=== PATIENT | male | born 1940 | race Caucasian/White ===

== ENCOUNTER 2016-08-08 11:37 | Emergency (ER) | payer MEDICARE, OTHER ==
[2016-08-08 11:55] VITALS: TEMP 96.9
[2016-08-08] MEDS ORDERED: SODIUM CHLORIDE 0.9% 1000 ML SOL IV SCH (12:30)
[2016-08-08 12:32] LABS: BASOPHILS % (AUTO) 1 % (0-3); EOSINOPHILS % (AUTO) 4 % (0-9); HEMATOCRIT 37 % (39-53); MEAN CORPUSCULAR VOLUME 91 fL (80-100); MONOCYTES % (AUTO) 7.6 % (0-12)
[2016-08-08 12:48] LABS: ALBUMIN 3.3 gm/dl (3.4-5.0); ALT 19 IU/L (14-63); CALCIUM 8.6 mg/dl (8.5-10.1); GLOM FILT RATE 82 mL/min (>60); POTASSIUM 4.4 mMol/L (3.5-5.1); SODIUM 138 mMol/L (136-145)
[2016-08-08 15:34] VITALS: BP 137/56; PULSE 66; RESP 15; O2SAT 87
== END 2016-08-08 15:20 | DRG 316 ==
LOC: ED 11:37
DX: I95.9 Hypotension, unspecified (principal); R61 Generalized hyperhidrosis
CPT/HCPCS: 36415; 71010; 80053; 83880; 84484; 85025; 85378; 93005; 96365; 96366; 99283; 99284; 99285